=== PATIENT | male | born 1985 | race Caucasian/White ===

== ENCOUNTER 2024-07-27 00:20 | Emergency (ER) | payer OTHER ==
[~2024-07-27] VITALS: Ht 167.6 cm; Wt 76.3 kg
[2024-07-27] MEDS ORDERED: CLOB0.0548 TOP (02:15)
[2024-07-27] MEDS ORDERED: CLOB5CR TOP (02:18)
[2024-07-27 02:44] VITALS: BP 118/76; TEMP 97; O2SAT 97
== END 2024-07-27 02:40 | disposition home or self-care (01) ==
LOC: M ED 00:20
DX: L20.9 Atopic dermatitis, unspecified (principal); Z91.09 Other allergy status, other than to drugs and biological substances; Z91.018 Allergy to other foods; Z79.2 Long term (current) use of antibiotics